=== PATIENT | female | born 1960 | race Caucasian/White ===

== ENCOUNTER 2018-05-06 14:42 | Observation (INO) | payer MEDICAID ==
[2018-05-06] MEDS ORDERED: ASPIRIN 81 MG CHEWABLE TAB PO ONE (15:05)
[2018-05-06] MEDS ORDERED: NS 500 ML IV ONE (15:05)
[2018-05-06 15:19] LABS: PLATELET COUNT 193 10^3/uL (150-400)
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
[2018-05-06] MEDS ORDERED: NITROGLYCERIN 0.4 MG BTL SL PRN (16:37)
[2018-05-06] MEDS ORDERED: ONDANSETRON 4 MG/2 ML VIAL IVP PRN (16:37)
[2018-05-06] MEDS ORDERED: ACETAMINOPHEN 325 MG TAB PO PRN (16:37)
--- NOTE | 2018-05-06 17:21 | PDGENHP ---
History and Physical - Chief Complaint chest pain - History of Present Illness 57yo F with history of HTN, syncope presents with chest pain. Describes as constricting sensation in middle of chest that radiates to her neck and head. Associated with nausea. This has been increasing in frequency over the last few weeks; had 3 episodes today that prompted her to come to ED. Episodes typically last 10 minutes and resolve spontaneously. Not exertional, positional, or pleuritic. She has not had any presyncope/syncope or shortness of breath. This sensation is similar to symptoms she had in 2012; at that time she was evaluated with a stress test which was abnormal. Subsequent coronary angiogram was normal. In the ED, she had stable vitals and negative troponin. ECG with anterior q waves which are old. HEART score of 4. Being admitted for further risk stratification. Case discussed with ED physician Dr Acuna. Prior records reviewed including work up done 03/2013. History Information - Allergies/Home Medication List Allergies/Adverse Reactions: No Known Allergies Allergy (Unverified 05/06/18 14:49) Home Medications: Miscellaneous Medical Supply [NO HOME MEDS] 03/26/13 [Last Taken Unknown] Effexor Xr 05/06/18 [Last Taken Unknown] traZODone 05/06/18 [Last Taken Unknown] I have personally reviewed and updated: family history, medical history, social history, surgical history - Past Medical History Additional medical history: HTN, syncope of unclear etiology - Surgical History Reports: no pertinent surgical hx - Family History Additional family history: mother and father both with CAD that was diagnosed in their 50s, unclear if had [place] - Social History Smoking Status: Never smoked Alcohol Use: Occasionally (glass of wine few days a week) Drug Use: Marijuana Review of Systems Review of Systems: ROS: 10pt was reviewed & negative except for what was stated in HPI & below Physical Exam Physical Exam: Temp Pulse Resp BP Pulse Ox 36.9 C 77 18 128/78 H 98 05/06/18 14:50 05/06/18 16:50 05/06/18 16:50 05/06/18 16:50 05/06/18 16:50 Constitutional: no apparent distress, appears nourished, not in pain Eyes: PERRL, anicteric sclera, EOMI Ears, Nose, Mouth, Throat: moist mucous membranes, hearing normal, ears appear normal, no oral mucosal ulcers Cardiovascular: regular rate and rhythym, no murmur, rub, or gallop, No edema Respiratory: no respiratory distress, no rales or rhonchi, clear to auscultation Gastrointestinal: normoactive bowel sounds, soft, non-tender abdomen, no palpable masses Genitourinary: no bladder fullness, no bladder tenderness Skin: warm, normal color, no rashes or abrasions, no fluctuance, no induration, No mottled Musculoskeletal: full muscle strength, no muscle tenderness, normal joint ROM, no joint effusions Neurologic: AAOx3 Psychiatric: interacting appropriately, not anxious, not encephalopathic, thought process linear Lab Data & Imaging Review 05/06/18 15:08 05/06/18 15:08 WBC 6.24 10^3/uL (3.80-9.50) 05/06/18 15:08 RBC 4.65 10^6/uL (4.18-5.33) 05/06/18 15:08 Hgb 14.3 g/dL (12.6-16.3) 05/06/18 15:08 Hct 41.9 % (38.0-47.0) 05/06/18 15:08 MCV 90.1 fL (81.5-99.8) 05/06/18 15:08 MCH 30.8 pg (27.9-34.1) 05/06/18 15:08 MCHC 34.1 g/dL (32.4-36.7) 05/06/18 15:08 RDW 12.7 % (11.5-15.2) 05/06/18 15:08 Plt Count 193 10^3/uL (150-400) 05/06/18 15:08 MPV 9.4 fL (8.7-11.7) 05/06/18 15:08 Neut % (Auto) 55.5 % (39.3-74.2) 05/06/18 15:08 Lymph % (Auto) 34.9 % (15.0-45.0) 05/06/18 15:08 Lake % (Auto) 7.4 % (4.5-13.0) 05/06/18 15:08 Eos % (Auto) 1.4 % (0.6-7.6) 05/06/18 15:08 Baso % (Auto) 0.6 % (0.3-1.7) 05/06/18 15:08 Nucleat RBC Rel Count 0.0 % (0.0-0.2) 05/06/18 15:08 Absolute Neuts (auto) 3.46 10^3/uL (1.70-6.50) 05/06/18 15:08 Absolute Lymphs (auto) 2.18 10^3/uL (1.00-3.00) 05/06/18 15:08 Absolute Monos (auto) 0.46 10^3/uL (0.30-0.80) 05/06/18 15:08 Absolute Eos (auto) 0.09 10^3/uL (0.03-0.40) 05/06/18 15:08 Absolute Basos (auto) 0.04 10^3/uL (0.02-0.10) 05/06/18 15:08 Absolute Nucleated RBC 0.00 10^3/uL (0-0.01) 05/06/18 15:08 Immature Gran % 0.2 % (0.0-1.1) 05/06/18 15:08 Immature Gran # 0.01 10^3/uL (0.00-0.10) 05/06/18 15:08 Sodium 138 mEq/L (135-145) 05/06/18 15:08 Potassium 4.0 mEq/L (3.3-5.0) 05/06/18 15:08 Chloride 99 mEq/L (97-110) 05/06/18 15:08 Carbon Dioxide 30 mEq/l (22-31) 05/06/18 15:08 Anion Gap 9 mEq/L (8-16) 05/06/18 15:08 BUN 21 mg/dL (7-23) 05/06/18 15:08 Creatinine 0.9 mg/dL (0.6-1.0) 05/06/18 15:08 Estimated GFR > 60 05/06/18 15:08 Glucose 91 mg/dL (70-100) 05/06/18 15:08 Calcium 9.9 mg/dL (8.5-10.4) 05/06/18 15:08 POC Troponin I 0.00 ng/mL (0.00-0.08) 05/06/18 15:12 Visualized and Interpreted imaging results: Yes Interpretation: CXR: clear lung edwards, no infiltrate or effusion, normal sized heart, no mediastinal widening (interpreted by me) Visualized and Interpreted EKG results: Yes EKG additional interpertation: ECG: NSR, q waves in V1-3 (old), left atrial enlargement, no acute ischemic changes (interpreted by me) Assessment & Plan Assessment: 57yo F with history of HTN, possible family history of early CAD, chronic anterior Q waves on ECG presents with chest pain being admitted for further risk stratification. Plan: #Chest pain: Intermediate risk for coronary disease. Initial trop/ecg without acute ischemia. Very low likelihood of PE with negative d-dimer. - Serial trop/ecg per protocol - Telemetry - TTE - Exercise stress with MPI - Check A1c, lipids #HTN: BP initially a bit high, likely r/t pain. Now better. - Monitor #H/o syncope: Worked up with holter monitor which showed rare PAC/PVCs. TTE without valve issues. No recurrence. Diet: no caffeine in case converted to pharmacologic stress VTE ppx: low risk, ambulate Code: full Dispo: Admit under observation to PCU for above evaluation of chest pain.
[2018-05-06] MEDS ORDERED: traZODone 50 MG TAB PO SCH (21:00)
[2018-05-06] MEDS: buPROPion SR 150 MG TAB PO SCH (21:59)
--- NOTE | 2018-05-06 23:16 | CPEKG ---
Test Reason : OPEN Blood Pressure : / mmHG Vent. Rate : 074 BPM Atrial Rate : 074 BPM P-R Int : 179 ms QRS Dur : 094 ms QT Int : 399 ms P-R-T Axes : 078 067 019 degrees QTc Int : 443 ms Sinus rhythm Anterior infarct, old Confirmed by Feliberto Acuna ([id number]) on 05/06/2018 11:15:59 PM Referred By: Confirmed By:Feliberto Acuna
[2018-05-07] MEDS: buPROPion SR 150 MG TAB PO SCH (08:52)
[2018-05-07] MEDS ORDERED: PNEUMOCOCCAL 0.5ML VACCINE VIAL IM ONE (12:00)
--- NOTE | 2018-05-07 12:11 | CPR ---
PROCEDURE: Exercise treadmill of exercise treadmill myocardial perfusion imaging study. SUPERVISING BURN NURSE: Dr. Dale Gold. INDICATION FOR PROCEDURE: Chest pain. Abnormal electrocardiogram. PRE: After obtaining informed consent, the patient was placed on an electrocardiogram. Initial EKG shows sinus bradycardia with initial rate at 55 BPM. The patient was noted to have Q-waves in V1 and V2, with ST depression in inferolateral leads. The patient reports no chest pain, pressure, or symp toms suggesting of ischemia. Initial blood pressure 132/80. STRESS: The patient was placed on exercise treadmill, following standard [place] protocol with the foll owing findings. 1. Patient exercised for 10 minutes and 40 seconds. 2. 11.3 METS. 3. The patient obtained a heart rate of 146 beats per minute, which was 90% of MPHR. 4. At peak exercise, patient did report some mild right-sided jaw pain, which was nonexercise limiti ng. Did dissipate within 5 minutes of recovery. 5. The patient was noted to have a millimeter ST depression, inferolateral leads at peak exercise. 6. Rare PVC was noted during exercise, none during rest or recovery. 7. BP response rest 132/80, peak 181/72. 8. SpO2 greater than 90% throughout testing. 9. Test was stopped due to maximum effort. 10. Mendoza treadmill score of 2, placing patient at moderate risk. RECOVERY: Patient recovered for 5 minutes, right-sided jaw pain dissipated. Her vital signs remaine d stable. Electrocardiogram returned to baseline. Final blood pressure was 150/80. No arrhythmias noted. IMPRESSION: A 57-year-old female with reported significant family history of coronary artery disease , admitted with abnormal electrocardiogram and episodes of spontaneous chest pressure, undergoing ETT MPI study for evaluation of ischemia. On peak, the patient was noted to have abnormal electrocardio gram at rest, with noted mild ST depression in inferior leads. At peak, ST depression did worsen to 1 mm. She did report some mild right-sided jaw pain at peak exercise, but no chest pressure. This p ain did dissipate within 5 minutes of rest. This was an equivocal test for ischemia with a Mendoza nia dmill score of 2, but with underlying abnormality of resting EKG, the sensitivity of test could be sk ewed, potentially giving her a higher rate of a false-positive. RECOMMENDATION: For further evaluation for ischemia by nuclear imaging. The patient has been taken down to Nuclear Medicine at this time for post-stress imaging. /[id number]/MODL
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
[2018-05-07 13:15] VITALS: BP 137/96
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
--- NOTE | 2018-05-07 17:49 | ASMTLACE ---
LACE Length of stay for Answers: Less than 1 day current admission Acuity / Level of Answers: No Care: Did the patient have an inpatient admission? Comorbidities - select Answers: Coronary Artery Disease all that apply Other Notes: HTN, [place] # of Emergency department Answers: 1-2 visits in the last 6 months Social determinants Answers: Homelessness (street, assisted) Score: 7 Date Signed: 05/07/2018 05:48 PM Electronically Signed By:Ashly Bruner
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
== END 2018-05-07 17:00 | disposition home or self-care (01) ==
LOC: F2W 16:56
PROVIDERS: ADMIT Internal Medicine; ATTEND Internal Medicine
DX: R07.9 Chest pain, unspecified (principal); E86.9 Volume depletion, unspecified; I10 Essential (primary) hypertension
CPT/HCPCS: 71045; 78452; 90471; 93005; 93017; 93306; 96360; 99285; A9500; G0378; 84484-PO; G0008; G0009